=== PATIENT | male | born 1945 | race Caucasian/White ===

== ENCOUNTER 2022-12-17 13:01 | Outpatient (CLI) | payer MEDICARE, BC ==
[2022-12-17 17:58] LABS: BASOPHILS % (AUTO) 0.4 %; EOSINOPHILS # (AUTO) 0.3 10^3/uL (0.0-0.7); EOSINOPHILS % (AUTO) 4.3 %; HCT - HEMATOCRIT 45.1 % (42.0-52.0); HGB - HEMOGLOBIN 14.8 g/dL (14.0-18.0); LYMPHOCYTES # (AUTO) 1.7 10^3/uL (1.5-3.5); LYMPHOCYTES % (AUTO) 21.5 %; MEAN CORPUSCULAR HEMOGLOBIN 31.7 pg (27.0-31.0); MEAN CORPUSCULAR HGB CONC 32.8 g/dL (32.0-36.0); MEAN CORPUSCULAR VOLUME 96.6 fL (80.0-94.0); MEAN PLATELET VOLUME 9.6 fL (7.4-11.4); MONOCYTES # (AUTO) 0.9 10^3/uL (0.0-1.0); MONOCYTES % (AUTO) 11.3 %; NEUTROPHILS # (AUTO) 4.8 10^3/uL (1.5-6.6); NEUTROPHILS % (AUTO) 62.1 %; PLT - PLATELET COUNT 273 10^3/uL (130-450); RED BLOOD COUNT 4.67 10^6/uL (4.70-6.10); RED CELL DISTRIBUTION WIDTH 14.3 % (12.0-15.0); WHITE BLOOD COUNT 7.7 x10^3/uL (4.8-10.8)
[2022-12-17 18:48] LABS: ALBUMIN 4.1 g/dL (3.2-5.5); ALBUMIN/GLOBULIN RATIO 1.3 (1.0-2.2); ALKALINE PHOSPHATASE 110 IU/L (42-121); ALT ALANINE AMINOTRANSFERASE 26 IU/L (10-60); AST ASPARTATE AMINOTRANSFERASE 18 IU/L (10-42); BILIRUBIN,TOTAL 0.3 mg/dL (0.2-1.0); BUN - BLOOD UREA NITROGEN 26 mg/dL (6-20); CALCIUM 8.7 mg/dL (8.5-10.3); CARBON DIOXIDE - CO2 27 mmol/L (21-32); CHLORIDE 107 mmol/L (101-111); CHOL/HDL RATIO 4.8 (<5.0); CHOLESTEROL 174 mg/dL; GFR - MDRD 33 (>89); GLUCOSE 145 mg/dL (74-104); HDL CHOLESTEROL 36 mg/dL; LDL CHOLESTEROL,CALCULATED 84 mg/dL; LDL/HDL RATIO 2.3 (<3.6); POTASSIUM 4.4 mmol/L (3.5-4.5); SODIUM 139 mmol/L (135-145); TOTAL PROTEIN 7.2 g/dL (6.4-8.9); TRIGLYCERIDES 269 mg/dL (48-352); VLDL CHOLESTEROL 54 mg/dL
[2022-12-17 18:54] LABS: THYROID STIMULATING HORMONE 3.31 uIU/mL (0.34-5.60)
[2022-12-17 20:36] LABS: ESTIMATED AVERAGE GLUCOSE 154 mg/dL (70-100)
== END 2022-12-17 13:02 | disposition home or self-care (01) ==
LOC: LAB.N 13:01
PROVIDERS: ATTEND Nurse Practitioner Family
DX: E11.22 Type 2 diabetes mellitus with diabetic chronic kidney disease (principal); E78.5 Hyperlipidemia, unspecified; E03.9 Hypothyroidism, unspecified
CPT/HCPCS: 36415; 80053; 80061; 83036; 83721; 84443; 85025

== ENCOUNTER 2023-02-26 14:01 | Outpatient (CLI) | payer MEDICARE, BC | END 2023-02-26 14:02 | disposition critical access hospital (66) | LOC: EMS 14:01 | DX: R53.83 Other fatigue (principal); R53.1 Weakness; R11.2 Nausea with vomiting, unspecified; R19.7 Diarrhea, unspecified; R41.0 Disorientation, unspecified; R05.9 Cough, unspecified; R32 Unspecified urinary incontinence; Z91.148 Patient's other noncompliance with medication regimen for other reason | CPT/HCPCS: A0425; A0429 ==

== ENCOUNTER 2023-02-26 14:19 | Emergency (ER) | payer MEDICARE, BC ==
[2023-02-26 14:51] LABS: BASOPHILS % (AUTO) 0.4 %; EOSINOPHILS # (AUTO) 0.2 10^3/uL (0.0-0.7); EOSINOPHILS % (AUTO) 2.5 %; HCT - HEMATOCRIT 45.8 % (42.0-52.0); HGB - HEMOGLOBIN 15.4 g/dL (14.0-18.0); MEAN CORPUSCULAR HGB CONC 33.6 g/dL (32.0-36.0); MEAN CORPUSCULAR VOLUME 95.2 fL (80.0-94.0); MEAN PLATELET VOLUME 9.4 fL (7.4-11.4); MONOCYTES # (AUTO) 0.9 10^3/uL (0.0-1.0); MONOCYTES % (AUTO) 10.4 %; NEUTROPHILS # (AUTO) 5.4 10^3/uL (1.5-6.6); NEUTROPHILS % (AUTO) 63.5 %; PLT - PLATELET COUNT 264 10^3/uL (130-450); RED BLOOD COUNT 4.81 10^6/uL (4.70-6.10); RED CELL DISTRIBUTION WIDTH 12.3 % (12.0-15.0); WHITE BLOOD COUNT 8.5 x10^3/uL (4.8-10.8)
[2023-02-26 15:08] LABS: ALBUMIN 4.2 g/dL (3.2-5.5); MAGNESIUM 1.5 mg/dL (1.7-2.3)
[2023-02-26 15:09] LABS: ALBUMIN/GLOBULIN RATIO 1.3 (1.0-2.2); BILIRUBIN,TOTAL 0.6 mg/dL (0.2-1.0); CALCIUM 13.1 mg/dL (8.5-10.3); CREATININE 3.4 mg/dL (0.6-1.3); POTASSIUM 3.4 mmol/L (3.5-4.5); TOTAL PROTEIN 7.5 g/dL (6.4-8.9)
[2023-02-26] MEDS ORDERED: SODIUM CHLORIDE 0.9% 1,000 ML IV STA ×2 (15:10→15:32)
--- NOTE | 2023-02-26 15:16 | XRAY Report ---
PROCEDURE: Chest 1V INDICATIONS: AMS/CONFUSION/COUGH TECHNIQUE: One view of the chest was acquired. COMPARISON: None. FINDINGS: Surgical changes and devices: None. Lungs and pleura: No pleural effusions or pneumothorax. Lungs are clear. Mediastinum: Mediastinal contours appear normal. Heart size is normal. Bones and chest wall: No suspicious bony lesions. Overlying soft tissues appear unremarkable. IMPRESSION: No acute cardiopulmonary process. Reviewed by: Masood Garcia MD on 02/26/2023 2:14 PM [facility] Approved by: Masood Garcia MD on 02/26/2023 2:14 PM [facility] Station ID: [id number]
--- NOTE | 2023-02-26 15:24 | ED Physician Documentation ---
PD HPI ALTERED MENTAL STATUS - Stated complaint Stated Complaint: CONFUSION - Chief complaint Chief Complaint: General - History obtained from History obtained from: EMS - Additional information Additional information: 77-year-old male with history of insulin-dependent diabetes, hypertension, hypothyroidism presents by EMS from home for altered mental status. Per EMS the states that the patient has been feeling poorly for the last 3 days and has been in bed, eating and drinking very little. Today the patient was confused and could not even recognize his , so she called 911. On arrival patient appears to be sleeping comfortably, when aroused he does not know where he is or why he is in the emergency department. Denies pain. Review of Systems Unable to obtain: AMS PD PAST MEDICAL HISTORY - Past Medical History Past Medical History: Yes Cardiovascular: Hypertension, High cholesterol Endocrine/Autoimmune: Type 2 diabetes, HyPOthyroidism : Benign prostate hypertrophy - Past Surgical History Past Surgical History: No - Present Medications Home Medications: Ambulatory Orders Medication Instructions Recorded Confirmed Amitriptyline HCl 1 cap PO DAILY 02/26/23 02/26/23 Atorvastatin [Lipitor] 1 tab PO DAILY 02/26/23 02/26/23 Insulin Glargine,Hum.rec.anlog 1 unit SUBQ DAILY 02/26/23 02/26/23 [Basaglar Kwikpen U-100] Insulin Lispro [Humalog] 1 unit SUBQ DAILY 02/26/23 02/26/23 Levothyroxine Sodium [Synthroid] 1 tab PO DAILY 02/26/23 02/26/23 Tamsulosin [Flomax] 1 cap PO DAILY 02/26/23 02/26/23 - Allergies Allergies/Adverse Reactions: Allergies Allergy/AdvReac Type Severity Reaction Status Date / Time No Known Drug Allergies Allergy Verified 02/26/23 14:39 - Social History Does the pt smoke?: No Smoking Status: Never smoker Does the pt drink ETOH?: No - Immunizations Immunizations are current?: Yes - POLST Patient has POLST: No PD ED PE NORMAL - Vitals Vital signs reviewed: Yes - General General: No acute distress, Other (frail, ill appearing) - Cardiac Cardiac: RRR, Strong equal pulses - Respiratory Respiratory: No respiratory distress, Clear bilaterally - Abdomen Abdomen: Soft, Non tender, Non distended - Extremities Extremities: No deformity, No tenderness to palpate, Normal ROM s pain, No edema - Neuro Neuro: compressor operator 2-12 intact, Other (Oriented to self. Moves all extremities.) Results - Vitals Vitals: Vital Signs - 24 hr 02/27/23 02/27/23 02/27/23 03:15 04:00 04:03 Temperature 36.6 C Heart Rate 77 68 Respiratory 25 H 13 Rate Blood Pressure 148/94 H 170/73 H O2 Saturation 99 100 02/27/23 02/27/23 02/27/23 04:41 05:32 06:28 Temperature Heart Rate 62 63 68 Respiratory 14 12 14 Rate Blood Pressure 152/80 H 177/75 H 132/59 H O2 Saturation 94 96 95 Oxygen O2 Source Room air - Labs Labs: Microbiology 02/26/23 14:45 Blood Culture - Preliminary Blood - Right Arm NO GROWTH AFTER 1 DAY 02/26/23 14:38 Blood Culture - Preliminary Blood - Right Hand NO GROWTH AFTER 1 DAY Laboratory Tests 02/26/23 02/26/23 02/26/23 14:30 14:38 14:38 WBC 8.5 RBC 4.81 Hgb 15.4 Hct 45.8 MCV 95.2 H MCH 32.0 H MCHC 33.6 RDW 12.3 Plt Count 264 MPV 9.4 Neut # (Auto) 5.4 Lymph # (Auto) 2.0 Owsley # (Auto) 0.9 Eos # (Auto) 0.2 Baso # (Auto) 0.0 Absolute Nucleated RBC 0.00 Nucleated RBC % 0.0 Sodium 136 Potassium 3.4 L Chloride 99 L Carbon Dioxide 27 Anion Gap 10.0 BUN 45 H Creatinine 3.4 H Estimated GFR (MDRD) 18 L Glucose 196 H Lactic Acid Calcium 13.1 H* Ionized Calcium Magnesium 1.5 L Total Bilirubin 0.6 AST 15 ALT 19 Alkaline Phosphatase 113 Total Creatine Kinase 100 Troponin I High Sens Total Protein 7.5 Albumin 4.2 Globulin 3.3 Albumin/Globulin Ratio 1.3 Lipase 18 TSH Urine Color Urine Clarity Urine pH Ur Specific Stickney Urine Protein Urine Glucose (UA) Urine Ketones Urine Occult Blood Urine Nitrite Urine Bilirubin Urine Urobilinogen Ur Leukocyte Esterase Urine RBC Urine WBC Ur Squamous Epith Cells Urine Bacteria Ur Microscopic Review Urine Culture Comments Nasal Adenovirus (PCR) NOT DETECTED Nasal B. parapertussis DNA (PCR) NOT DETECTED Nasal Coronavir 229E PCR NOT DETECTED Nasal Coronavir HKU1 PCR NOT DETECTED Nasal Coronavir NL63 PCR NOT DETECTED Nasal Coronavir OC43 PCR NOT DETECTED Nasal Enterovir/Rhinovir PCR NOT DETECTED Nasal Influenza B PCR NOT DETECTED Nasal Influenza A PCR NOT DETECTED Nasal Parainfluen 1 PCR NOT DETECTED Nasal Parainfluen 2 PCR NOT DETECTED Nasal Parainfluen 3 PCR NOT DETECTED Nasal Parainfluen 4 PCR NOT DETECTED Nasal RSV (PCR) NOT DETECTED Nasal B.pertussis DNA PCR NOT DETECTED Nasal C.pneumoniae (PCR) NOT DETECTED Guillermo Human Metapneumo PCR NOT DETECTED Nasal M.pneumoniae (PCR) NOT DETECTED Nasal SARS-CoV-2 (PCR) NOT DETECTED 02/26/23 02/26/23 02/26/23 14:38 14:38 15:30 WBC RBC Hgb Hct MCV MCH MCHC RDW Plt Count MPV Neut # (Auto) Lymph # (Auto) Owsley # (Auto) Eos # (Auto) Baso # (Auto) Absolute Nucleated RBC Nucleated RBC % Sodium Potassium Chloride Carbon Dioxide Anion Gap BUN Creatinine Estimated GFR (MDRD) Glucose Lactic Acid 1.3 Calcium Ionized Calcium Magnesium Total Bilirubin AST ALT Alkaline Phosphatase Total Creatine Kinase Troponin I High Sens 182.7 H* Total Protein Albumin Globulin Albumin/Globulin Ratio Lipase TSH Urine Color YELLOW Urine Clarity CLEAR Urine pH 6.0 Ur Specific Stickney 1.020 Urine Protein TRACE Urine Glucose (UA) 100 H Urine Ketones TRACE Urine Occult Blood SMALL H Urine Nitrite NEGATIVE Urine Bilirubin NEGATIVE Urine Urobilinogen 0.2 (NORMAL) Ur Leukocyte Esterase NEGATIVE Urine RBC 0-5 Urine WBC 0-3 Ur Squamous Epith Cells NONE SEEN Urine Bacteria Rare Ur Microscopic Review INDICATED Urine Culture Comments NOT INDICATED Nasal Adenovirus (PCR) Nasal B. parapertussis DNA (PCR) Nasal Coronavir 229E PCR Nasal Coronavir HKU1 PCR Nasal Coronavir NL63 PCR Nasal Coronavir OC43 PCR Nasal Enterovir/Rhinovir PCR Nasal Influenza B PCR Nasal Influenza A PCR Nasal Parainfluen 1 PCR Nasal Parainfluen 2 PCR Nasal Parainfluen 3 PCR Nasal Parainfluen 4 PCR Nasal RSV (PCR) Nasal B.pertussis DNA PCR Nasal C.pneumoniae (PCR) Guillermo Human Metapneumo PCR Nasal M.pneumoniae (PCR) Nasal SARS-CoV-2 (PCR) 02/26/23 02/26/23 02/26/23 17:32 17:32 21:31 WBC RBC Hgb Hct MCV MCH MCHC RDW Plt Count MPV Neut # (Auto) Lymph # (Auto) Owsley # (Auto) Eos # (Auto) Baso # (Auto) Absolute Nucleated RBC Nucleated RBC % Sodium 137 Potassium 3.4 L Chloride 103 Carbon Dioxide 22 Anion Gap 12.0 BUN 43 H Creatinine 3.1 H Estimated GFR (MDRD) 20 L Glucose 239 H Lactic Acid Calcium 11.4 H Ionized Calcium NO Magnesium Total Bilirubin AST ALT Alkaline Phosphatase Total Creatine Kinase Troponin I High Sens 200.7 H* 186.7 H* Total Protein Albumin Globulin Albumin/Globulin Ratio Lipase TSH Urine Color Urine Clarity Urine pH Ur Specific Stickney Urine Protein Urine Glucose (UA) Urine Ketones Urine Occult Blood Urine Nitrite Urine Bilirubin Urine Urobilinogen Ur Leukocyte Esterase Urine RBC Urine WBC Ur Squamous Epith Cells Urine Bacteria Ur Microscopic Review Urine Culture Comments Nasal Adenovirus (PCR) Nasal B. parapertussis DNA (PCR) Nasal Coronavir 229E PCR Nasal Coronavir HKU1 PCR Nasal Coronavir NL63 PCR Nasal Coronavir OC43 PCR Nasal Enterovir/Rhinovir PCR Nasal Influenza B PCR Nasal Influenza A PCR Nasal Parainfluen 1 PCR Nasal Parainfluen 2 PCR Nasal Parainfluen 3 PCR Nasal Parainfluen 4 PCR Nasal RSV (PCR) Nasal B.pertussis DNA PCR Nasal C.pneumoniae (PCR) Guillermo Human Metapneumo PCR Nasal M.pneumoniae (PCR) Nasal SARS-CoV-2 (PCR) 02/27/23 06:12 WBC RBC Hgb Hct MCV MCH MCHC RDW Plt Count MPV Neut # (Auto) Lymph # (Auto) Owsley # (Auto) Eos # (Auto) Baso # (Auto) Absolute Nucleated RBC Nucleated RBC % Sodium 140 Potassium 3.2 L Chloride 102 Carbon Dioxide 25 Anion Gap 13.0 BUN 43 H Creatinine 3.0 H Estimated GFR (MDRD) 20 L Glucose 181 H Lactic Acid Calcium 11.3 H Ionized Calcium Magnesium Total Bilirubin AST ALT Alkaline Phosphatase Total Creatine Kinase Troponin I High Sens 176.2 H* Total Protein Albumin Globulin Albumin/Globulin Ratio Lipase TSH 5.40 Urine Color Urine Clarity Urine pH Ur Specific Stickney Urine Protein Urine Glucose (UA) Urine Ketones Urine Occult Blood Urine Nitrite Urine Bilirubin Urine Urobilinogen Ur Leukocyte Esterase Urine RBC Urine WBC Ur Squamous Epith Cells Urine Bacteria Ur Microscopic Review Urine Culture Comments Nasal Adenovirus (PCR) Nasal B. parapertussis DNA (PCR) Nasal Coronavir 229E PCR Nasal Coronavir HKU1 PCR Nasal Coronavir NL63 PCR Nasal Coronavir OC43 PCR Nasal Enterovir/Rhinovir PCR Nasal Influenza B PCR Nasal Influenza A PCR Nasal Parainfluen 1 PCR Nasal Parainfluen 2 PCR Nasal Parainfluen 3 PCR Nasal Parainfluen 4 PCR Nasal RSV (PCR) Nasal B.pertussis DNA PCR Nasal C.pneumoniae (PCR) Guillermo Human Metapneumo PCR Nasal M.pneumoniae (PCR) Nasal SARS-CoV-2 (PCR) PD Medical Decision Making - ED course Complexity details: reviewed old records, reviewed results, re-evaluated patient, considered differential, d/w patient, d/w family ED course: AMS x2 days following viral-sounding illness. Discussed with Susana ([phone]) who stated that patient has been in bed for 4 days and drinking very little. She states that he did fall 2 days ago in the bathroom and hit his head, however he was not evaluated medically at that time. He has a hx of stage II kidney disease that is being monitored. Labs significant for creatinine 3.4 (prev 2.0), Calcium 13, trop 180. EKG NSR without ischemia. Preliminary review of CT abdomen and pelvis and CT brain do not appear to show acute process, however pending formal radiology read. Mental status unchanged, patient remains confused and lethargic. is now arrived at bedside, she states that they have recently moved to the area from another region and have not established care in the area. Care of patient signed out to Dr. Mcclelland. - Critical Care Time(min): 64 Comments: multiple metabolic derangements requiring correction. Time Includes: Direct patient care, Review records, Reassess patient, Document care, Coordinate care, Medical consult, Family consult for tx dec Data interpretation: Labs, Pulse ox, CXR, Prior EKG, Cardiac output Departure - Departure Disposition: 02 Transfer Acute Care Hosp Clinical Impression: Metabolic encephalopathy, Hypercalcemia, MODESTA (acute kidney injury), NSTEMI (n on-ST elevated myocardial infarction) Condition: Serious Forms: PCP List Discharge Date/Time: 02/27/23 07:50
[2023-02-26 15:39] LABS: B. PARAPERTUSSIS- RESP PCR PAN NOT DETECTED; B. PERTUSSIS- RESP PCR PANEL NOT DETECTED; C. PNEUMONIAE- RESP PCR PANEL NOT DETECTED; CORONAVIRUS 229E-RESP PCR NOT DETECTED; CORONAVIRUS HKU1-RESP PCR NOT DETECTED; CORONAVIRUS NL63-RESP PCR NOT DETECTED; CORONAVIRUS OC43-RESP PCR NOT DETECTED; HUMAN METAPNEUMOVIRUS NOT DETECTED; INFLUENZA A- RESP PCR PANEL NOT DETECTED; INFLUENZA B - RESP PCR PANEL NOT DETECTED; M. PNEUMONIAE- RESP PCR PANEL NOT DETECTED; PARAINFLUENZA VIRUS 1 NOT DETECTED; PARAINFLUENZA VIRUS 2 NOT DETECTED; PARAINFLUENZA VIRUS 3 NOT DETECTED; PARAINFLUENZA VIRUS 4 NOT DETECTED; RHINOVIRUS/ENTEROVIRUS NOT DETECTED; RSV- RESP PCR PANEL NOT DETECTED; SARS-CoV-2 -RESP PCR PANEL NOT DETECTED
[2023-02-26] MEDS ORDERED: MORPHINE 2 MG/ML CARPUJECT IVP STA (15:43)
[2023-02-26] MEDS ORDERED: hydrALAZINE INJ 20 MG/ML VIAL IVP STA (15:43)
[2023-02-26 16:06] LABS: BILIRUBIN,URINE NEGATIVE (NEGATIVE); GLUCOSE, URINE (UA) 100 mg/dL (NEGATIVE); KETONES,URINE (UA) TRACE mg/dL (NEGATIVE); LEUKOCYTE ESTERASE, URINE NEGATIVE (NEGATIVE); NITRITE,URINE NEGATIVE (NEGATIVE); OCCULT BLOOD,URINE SMALL (NEGATIVE); PROTEIN,URINE TRACE mg/dL (NEGATIVE); UROBILINOGEN,URINE 0.2 (NORMAL) E.U./dL (NORMAL)
[2023-02-26 16:09] LABS: CLARITY,URINE CLEAR (CLEAR)
[2023-02-26 16:18] LABS: BACTERIA,URINE Rare /HPF (None Seen); RBC,URINE 0-5 /HPF (0-5); SQUAMOUS EPITHELIAL CELL,UR NONE SEEN (<= Few); WBC,URINE 0-3 /HPF (0-3)
[2023-02-26] MEDS ORDERED: LABETALOL 20 MG/4 ML SYRINGE IVP STA (16:57)
--- NOTE | 2023-02-26 17:42 | CT Report ---
PROCEDURE: Head WO INDICATIONS: AMS/CONFUSION TECHNIQUE: Noncontrast 4.5 mm thick angled axial sections acquired from the foramen magnum to the vertex. For r adiation dose reduction, the following was used: automated exposure control, adjustment of mA and/or kV according to patient size. COMPARISON: None. FINDINGS: Image quality: Excellent. CSF spaces: Basal cisterns are patent. No extra-axial fluid collections. Ventricles are normal in size and shape. Brain: Diffuse parenchymal volume loss with expansion of the CSF containing spaces. No midline shift . No intracranial masses or hemorrhage. Lozano-white matter interface is normal. Skull and face: Calvarium and visualized facial bones are intact, without suspicious lesions. Sinuses: Visualized sinuses and mastoids are clear. IMPRESSION: No intracranial hemorrhage or acute finding. Reviewed by: Masood Garcia MD on 02/26/2023 4:41 PM [facility] Approved by: Masood Garcia MD on 02/26/2023 4:41 PM [facility] Station ID: [id number]
[2023-02-26] MEDS ORDERED: MAGNESIUM SULFATE 2 GRAM 2 GM/50 ML BAG IV ONE (17:45)
--- NOTE | 2023-02-26 17:46 | CT Report ---
PROCEDURE: Abdomen/Pelvis WO INDICATIONS: MIDEPIGASTRIC ABD PAIN TECHNIQUE: A CT scan of the abdomen and pelvis was performed without the use of intravenous contrast. Images we re recorded and evaluated at appropriate window settings. Reformats: coronal and sagittal. For radiat ion dose reduction, the following was used: automated exposure control, adjustment of mA and/or kV ac cording to patient size. COMPARISON: None. FINDINGS: Image quality: Excellent. Lung bases and heart: Hiatal hernia. Mild gravity dependent atelectasis. Liver: No contour-deforming mass. Gallbladder and biliary tree: No radiopaque stones or wall thickening. No biliary dilation. Spleen: No splenomegaly. Pancreas: No pancreatic ductal dilation. Adrenals: No adrenal nodule. Kidneys and ureters: No hydronephrosis. No renal cystic lesion which requires follow up. No solid mas s. Multiple bilateral nonobstructive renal stones. Surrounding senescent fatty filtration. Partially exophytic right renal cyst. Bowel and peritoneum: No bowel distension. No pathologic free fluid. Normal appendix. Lymph nodes: No central or retroperitoneal adenopathy. Vessels: No infrarenal aortic aneurysm. PELVIS Reproductive organs: Unremarkable. Bladder: No wall thickness, accounting for underdistention. Pelvic lymph nodes: No pelvic adenopathy by size criteria. Bones: No aggressive osseous abnormality. Other: No significant ventral or inguinal hernia. IMPRESSION: Numerous bilateral obstructive renal stones without hydronephrosis. Small hiatal hernia. Reviewed by: Masood Garcia MD on 02/26/2023 4:45 PM [facility] Approved by: Masood Garcia MD on 02/26/2023 4:45 PM [facility] Station ID: [id number]
[2023-02-26 18:07] LABS: BUN - BLOOD UREA NITROGEN 43 mg/dL (6-20); CALCIUM 11.4 mg/dL (8.5-10.3); CARBON DIOXIDE - CO2 22 mmol/L (21-32); CHLORIDE 103 mmol/L (101-111); CREATININE 3.1 mg/dL (0.6-1.3); GFR - MDRD 20 (>89); GLUCOSE 239 mg/dL (74-104); IONIZED CALCIUM IF INDICATED NO; POTASSIUM 3.4 mmol/L (3.5-4.5); SODIUM 137 mmol/L (135-145)
[2023-02-26] MEDS ORDERED: ENOXAPARIN 80 MG/0.8 ML SYRINGE SUBQ STA (18:14)
[2023-02-26] MEDS ORDERED: ASPIRIN CHEW 81 MG TABLET PO STA (18:15)
[2023-02-26] MEDS ORDERED: ASPIRIN CHEW 81 MG TABLET ONE (18:48)
--- NOTE | 2023-02-26 18:50 | ED Physician Documentation ---
ED Addendum - Addendum Addendum: 02/26/23 18:50 Patient was signed out to me by her all of her awaiting repeat laboratory testing as well as final results of CT scans. CT scan does not show any acute abnormality of the head or abdomen pelvis that would explain his symptoms. His second troponin came back higher than the initial. states he had been eating a lot of Tums lately. Does not recall any specific chest pain but he has heartburn frequently. states that he has not had any cardiac history in the past. They recently moved here from [facility], his care used to be at [facility]. 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 Patient was given Lovenox for an NSTEMI. We will attempt to find a hospital for transfer. 02/26/23 21:32 No beds available locally yet, we are still looking for placement. Patient will be signed out to Dr. De La Rosa overnight continuing to look for a facility to take the patient. Departure - Departure Clinical Impression: Metabolic encephalopathy, Hypercalcemia, MODESTA (acute kidney injury), NSTEMI (non-ST elevated myocardial infarction) Condition: Serious Forms: PCP List
[2023-02-26] MEDS ORDERED: LOSARTAN 50 MG TABLET PO STA (19:08)
[2023-02-27] MEDS ORDERED: ACETAMINOPHEN 325 MG TABLET PO STA (03:25)
[2023-02-27 06:31] VITALS: BP 132/59; O2SAT 95
--- NOTE | 2023-02-27 06:55 | ED Physician Documentation ---
ED Addendum - Addendum Addendum: 02/27/23 06:51 I received signout/turnover of care from Dr. Ibrahim at the end of his shift who, in turn, received signout from Dr. Sims. Please see Dr. Sims's note for complete H&P as well as Dr. Mcclelland's addendum. In brief, patient's called 911 due to patient exhibiting altered mental status for the past few days as well as decreased activity and decreased p.o. intake. Patient has had significant confusion throughout ED stay and thus cannot offer useful contributing information to HPI/ROS. Reportedly, the patient had been taking a lot of oral antacids over the past few days, as well. This is led to the concern that the patient might be having abdominal and/or chest pain. Concerning findings on his workup thus far has included hypercalcemia (13.1, improving to 11.4 with IV fluids), elevated BUN and creatinine with mild improvement with IV fluids, and elevated high-sensitivity troponin (initially 183, increased to 201 on 3-hour repeat, subsequent recheck 187). Patient had significantly elevated blood pressures early in ED stay (systolic blood pressures as high as 220s), which eventually responded to several different medications including losartan, labetalol IV, and IV hydralazine. Given the lack of the clear baseline regarding his kidney function tests and mental status, and considering the elevated troponins patient will require further inpatient testing at a facility with higher level of care than is available at [facility]. I spoke with cardiology on-call for [facility] (Dr. Harvey) who agrees patient would be appropriate for transfer to [facility] under hospitalist service. I then spoke with Dr. Rutherford (hospitalist at [facility]) who accepts transfer of patient. However, I was then told by the transfer center coordinator that due to patient's AMS and his attempting to get out of bed despite being asked to not do so, he will require a sitter and this will require staffing beyond what is currently available (at the time of our conversation). He is thus on waiting list for transfer to [facility]. Towards the end of my shift, at approximately 5:30 AM, I was put in touch with cardiology on-call for [facility] (Dr. Andrade). Agrees patient would be appropriate for transfer to [facility] hospitalist service. I then spoke with Dr. Drake, hospitalist at [facility], who accepts patient for transfer to [facility]. In the course of our discussion, I note that the CT A/P performed yesterday in ED was read by radiologist as "numerous bilateral obstructive renal stones without hydronephrosis" although within same dictation it indicates "multiple bilateral nonobstructive renal stones" I spoke with radiologist certifed refrigeration operator and he entered an addendum to reflect final impression of "Numerous bilateral NONOBSTRUCTIVE renal stones without hydronephrosis". Note that patient was given 80mg SQ lovenox at 18:15; based on his GFR, dosing would be QD and thus he did not receive subsequent doses during [facility] ED stay
[2023-02-27 06:56] LABS: THYROID STIMULATING HORMONE 5.4 uIU/mL (0.34-5.60)
[2023-02-27 07:55] LABS: TROPONIN I HIGH SENSITIVITY 176.2 ng/L (2.3-19.7)
[2023-02-27 08:05] LABS: CALCIUM 11.3 mg/dL (8.5-10.3); POTASSIUM 3.2 mmol/L (3.5-4.5)
== END 2023-02-27 07:50 | disposition short-term general hospital (02) ==
LOC: EDUNIT# → ED 14:19
DX: G93.41 Metabolic encephalopathy (principal); E83.52 Hypercalcemia; N17.9 Acute kidney failure, unspecified; I21.4 Non-ST elevation (NSTEMI) myocardial infarction; I10 Essential (primary) hypertension; Z75.1 Person awaiting admission to adequate facility elsewhere
CPT/HCPCS: 36415; 70450; 71045; 74176; 80048; 80053; 81001; 82550; 83605; 83690; 83735; 84443; 84484; 85025; 87040; 87633; 93005; 96361; 96365; 96372; 96375; 99291; A9270; J1650; 81003; 87086

== ENCOUNTER 2023-06-02 08:00 | Outpatient (CLI) | payer MEDICARE, BC ==
[2023-06-02 19:54] LABS: BILIRUBIN,URINE NEGATIVE (NEGATIVE); GLUCOSE, URINE (UA) >=1000 mg/dL (NEGATIVE); KETONES,URINE (UA) NEGATIVE (NEGATIVE); LEUKOCYTE ESTERASE, URINE SMALL (NEGATIVE); NITRITE,URINE POSITIVE (NEGATIVE); OCCULT BLOOD,URINE TRACE-INTA (NEGATIVE); PROTEIN,URINE NEGATIVE (NEGATIVE); UROBILINOGEN,URINE 0.2 (NORMAL) E.U./dL (NORMAL)
[2023-06-02 19:56] LABS: CLARITY,URINE HAZY (CLEAR)
[2023-06-02 20:03] LABS: BACTERIA,URINE Few /HPF (None Seen); RBC,URINE 0-5 /HPF (0-5); SQUAMOUS EPITHELIAL CELL,UR RARE Squamous (<= Few); WBC,URINE >25 /HPF (0-3)
== END 2023-06-02 23:59 | disposition home or self-care (01) ==
LOC: LAB.WCP 08:00
PROVIDERS: ATTEND Nurse Practitioner Family
DX: N40.1 Benign prostatic hyperplasia with lower urinary tract symptoms (principal); R30.0 Dysuria; R32 Unspecified urinary incontinence
CPT/HCPCS: 81001; 87077; 87086

== ENCOUNTER 2023-06-24 12:45 | Outpatient (CLI) | payer MEDICARE, BC ==
--- NOTE | 2023-06-24 15:20 | XRAY Report ---
PROCEDURE: Chest 2V INDICATIONS: LOWER EXTREMITY EDEMA,BILATERAL TECHNIQUE: 2 views of the chest were acquired. COMPARISON: Chest radiographs 02/26/2023 FINDINGS: Surgical changes and devices: None. Lungs and pleura: No pleural effusions or pneumothorax. Lungs are clear. Mediastinum: Mediastinal contours appear normal. Heart size is normal. Bones and chest wall: No suspicious bony lesions. Overlying soft tissues appear unremarkable. IMPRESSION: No acute cardiopulmonary process. Reviewed by: Don Lynn MD on 06/24/2023 3:18 PM PDT Approved by: Don Lynn MD on 06/24/2023 3:18 PM PDT Station ID: [id number]
== END 2023-06-24 13:00 | disposition home or self-care (01) ==
LOC: DI.N 12:45
PROVIDERS: ATTEND Physician Assistant
DX: R60.0 Localized edema (principal); R60.9 Edema, unspecified

== ENCOUNTER 2023-06-29 08:00 | Outpatient (CLI) | payer MEDICARE, BC ==
[2023-06-29 13:07] LABS: BILIRUBIN,URINE NEGATIVE (NEGATIVE); GLUCOSE, URINE (UA) NEGATIVE (NEGATIVE); KETONES,URINE (UA) TRACE mg/dL (NEGATIVE); LEUKOCYTE ESTERASE, URINE SMALL (NEGATIVE); NITRITE,URINE POSITIVE (NEGATIVE); OCCULT BLOOD,URINE NEGATIVE (NEGATIVE); PROTEIN,URINE TRACE mg/dL (NEGATIVE); UROBILINOGEN,URINE 0.2 (NORMAL) E.U./dL (NORMAL)
[2023-06-29 13:11] LABS: CLARITY,URINE CLEAR (CLEAR)
[2023-06-29 13:42] LABS: WBC,URINE >25 /HPF (0-3)
[2023-06-29 13:43] LABS: BACTERIA,URINE Rare /HPF (None Seen); RBC,URINE 0-5 /HPF (0-5); SQUAMOUS EPITHELIAL CELL,UR NONE SEEN (<= Few)
== END 2023-06-29 23:59 | disposition home or self-care (01) ==
LOC: LAB.N 08:00
PROVIDERS: ATTEND Nurse Practitioner Family
DX: R30.0 Dysuria (principal)
CPT/HCPCS: 81001; 87086

== ENCOUNTER 2023-07-09 13:12 | Outpatient (CLI) | payer MEDICARE, BC ==
--- NOTE | 2023-07-11 10:02 | Ultrasound Report ---
PROCEDURE: Duplex Ext Veins Bilateral INDICATIONS: Kaleb iKng PA-C TECHNIQUE: Real-time imaging, as well as color and pulse Doppler interrogation, were performed of the deep veins of both legs from the inguinal ligament to the popliteal fossa. Attempted visualization of the calf veins was performed. COMPARISON: None FINDINGS: The deep veins are normally compressible, and free of intraluminal thrombus. Color and pu lse Doppler demonstrate normal phasic intravascular flow. There is normal augmentation response to d istal compression maneuver. IMPRESSION: No deep venous thrombosis of the visualized lower extremities. Reviewed by: Holly Grace MD on 07/11/2023 10:01 AM PDT Approved by: Holly Grace MD on 07/11/2023 10:01 AM PDT Station ID: [id number]
== END 2023-07-09 13:13 | disposition home or self-care (01) ==
LOC: DI 13:12
PROVIDERS: ATTEND Physician Assistant
DX: R60.0 Localized edema (principal)
CPT/HCPCS: 93970

== ENCOUNTER 2023-08-17 08:00 | Outpatient (CLI) | payer MEDICARE, BC | END 2023-08-17 23:59 | disposition home or self-care (01) | LOC: LAB 08:00 | PROVIDERS: ATTEND Urology | DX: N40.1 Benign prostatic hyperplasia with lower urinary tract symptoms (principal) | CPT/HCPCS: 87086 ==

== ENCOUNTER 2023-08-17 14:10 | Outpatient (CLI) | payer MEDICARE, BC ==
--- NOTE | 2023-08-17 23:15 | XRAY Report ---
PROCEDURE: Scapula 2V BL INDICATIONS: UPPER BACK PAIN TECHNIQUE: 4 views of the scapula were acquired. COMPARISON: Chest radiograph dated 06/24/2023 FINDINGS: Bones: No fractures or dislocations. No suspicious bony lesions. Visualized ribs appear intact. Soft tissues: Overlying soft tissues appear normal. IMPRESSION: No gross scapular fracture. No suspicious bony lesions. No gross soft tissue abnormalities. Reviewed by: Jerad Magana MD on 08/17/2023 11:14 PM PDT Approved by: Jerad Magana MD on 08/17/2023 11:14 PM PDT Station ID: [id number]
--- NOTE | 2023-08-17 23:18 | XRAY Report ---
PROCEDURE: Thoracic Spine 2V INDICATIONS: UPPER BACK PAIN TECHNIQUE: 3 views of the thoracic spine were acquired. COMPARISON: None. FINDINGS: Bones: No fractures or dislocations. No suspicious bony lesions. (12/27/2021/.. 12 pairs of ribs are noted, and appear intact where visualized. Soft tissues: No paravertebral stripe thickening. IMPRESSION: No acute bony abnormality. Mild degenerative disc disease in mid to lower thoracic spine. Reviewed by: Jerad Magana MD on 08/17/2023 11:16 PM PDT Approved by: Jerad Magana MD on 08/17/2023 11:16 PM PDT Station ID: [id number]
== END 2023-08-17 14:11 | disposition home or self-care (01) ==
LOC: DI.N 14:10
PROVIDERS: ATTEND Nurse Practitioner Family
DX: M51.34 Other intervertebral disc degeneration, thoracic region (principal); N40.1 Benign prostatic hyperplasia with lower urinary tract symptoms
CPT/HCPCS: 87086

== ENCOUNTER 2023-09-27 13:34 | Outpatient (CLI) | payer MEDICARE, BC ==
--- NOTE | 2023-09-27 14:38 | Sleep Patient Instructions ---
Sleep Center Visit Summary - Patient Visit Information Reason for Visit: Initial consult for evaluation of sleep disordered breathing and other sleep issues. - Patient Instructions Instructions Attached: Sleep Study Additional Instructions: You will be completing a sleep study, either an in-lab polysomnography (PSG) or home sleep study (HST). You will follow-up in the sleep care office after the sleep study is completed to hear the results and talk about therapy, if needed. You will be called by our office staff to schedule this appointment, but you may contact us with any questions. - Clinic Information Contact: [facility] [address] [place] [address] [email or web address] T: [phone]
[2023-09-27 14:43] VITALS: BP 132/63; O2SAT 98
--- NOTE | 2023-09-27 14:43 | SLEEP CARE CONSULTATION ---
Information from patient questionnaire entered by Noa Cohen. I have reviewed and concur with the information entered by Noa Cohen. This document represents the service I personally performed and the decisions made by me, Danisha Peng ARNP. History of Present Illness Service Date and Time: 09/27/2023 1334 Reason for Visit: New patient Accompanied by: Spouse Chief Complaint: reports: Insomnia, Unrefreshed sleep, Snoring, Fatigue, Frequent awakenings at night Date of Onset: ABOUT A YR Usual bedtime: 4667-2172 Time it takes to fall asleep: A FEW MINS Snores at night: Yes Observed to quit breathing while asleep: No Sleeps alone due to snoring: Yes Number of times waking at night: 3-5 TIMES OVER ACTIVE BLADDER Reasons for waking at night: reports: Bathroom. denies: Choking, Snoring, Gasping for air Toss, Turn, or Twitch while sleeping: Yes Recalls having dreams: Yes Usually gets out of bed at: 10:00 AM Feels refreshed in the morning: No Morning headache: No Sleepy or fatigued during the day: Yes Ever fallen asleep while driving: No Takes day naps: No Dreams during day naps: No Prior sleep studies: Yes Year and Where: [facility] 10 or 15 years ago--was negative Additional HPI information: I had the pleasure of seeing CHAN RICCI today regarding the possibility of him having a sleep disorder. His current complaints are unrefreshed sleep, snoring, fatigue and frequent night awakenings. His states his snoring has finally moved to another room to get sleep. He says he has been on Amitriptyline 100 mg for years for his migraines but when he went to hospital for a possible TIA and they took his dose down to 25 mg. He had a hard time until he started another medication that is helping. He no longer takes the Amitriptyline He has had some overactive bladder that is improved with medications. The patient tells me that he normally goes to bed around 1:30-2:30 am, and it takes him approximately few minutes to fall asleep. He has been told that he snores loudly and irregularly at night. He has not been observed to stop breathing in his sleep. His bed partner has to sleep in another room due to the loudness of his snoring. He can recall waking up on the average of 3-5 times during the night. Most of the time he wakes up because of overactive bladder, bathroom needs. He has not awakened for his own snoring, choking, and having to gasp for air. There is a lot of tossing and turning in his sleep. Generally he can recall having dreams. He usually wakes up at 10 am and does not feel refreshed. He usually does not have a morning headache. During the day he complains of feeling sleepy and fatigued. He has never fallen asleep while driving nor has any accident due to sleepiness. He usually does not take naps during the day. There is somniloquy (sleep talking) but no somnambulism (sleep walking). He reports having impaired concentration during the day. - Parasomnia Symptoms Ever been unable to move upon waking from sleep: No Walks in sleep: No Talks in sleep: Yes Ever acted out dreams in sleep: Yes Ever felt weak in the knees when startled or emotional: Yes Bothered by creepy, crawly, restless sensations in legs: No Problems with memory or concentration: Yes Subjective Initial [place] Sleepiness Scale score: 7 (09/27/23) Past Medical History Past Medical History: reports: Diabetes, Hypothyroidism, Anxiety, Impotence, Depression, Mood disorder, Other (CHRONIC KIDENY DISEASE, GLAUCOMA, OVER ACTIVE BLADDER CHILBAINS, CHRONIC DRY EYE) Social History The patient's occupation is a RETIRED. Patient is and lives in . Have you smoked in the past 12 months: No Alcohol use: No Caffeine use: No Caffeine amount and frequency: drinks decaff, 24 ounces daily Family History Family history of sleep disordered breathing: Yes Family Hx Sleep Apnea: Father: Snoring Allergies and Home Medications Known drug allergies: No Drug allergies reviewed: Yes Home medication list reviewed: Yes (as listed) Allergy and home medication list: Allergies No Known Drug Allergies Allergy (Verified 09/27/23 13:37) Home Medications Medication Instructions Recorded Confirmed Last Taken Type Atorvastatin [Lipitor] 1 tab PO DAILY 02/26/23 09/27/23 Unknown History Insulin Glargine,Hum.rec.anlog 1 unit SUBQ DAILY 02/26/23 09/27/23 Unknown History [Basaglar Kwikpen U-100] Insulin Lispro [Humalog] 1 unit SUBQ DAILY 02/26/23 09/27/23 Unknown History Levothyroxine Sodium [Synthroid] 1 tab PO DAILY 02/26/23 09/27/23 Unknown History Tamsulosin [Flomax] 1 cap PO DAILY 02/26/23 09/27/23 Unknown History Aspirin [Vazalore] See Rx Instructions .[facility] 09/27/23 09/27/23 Unknown History Dextrose [Glucose] See Rx Instructions .[facility] 09/27/23 09/27/23 Unknown History Dorzolamide HCl/Pf [Dorzolamide 2% See Rx Instructions .[facility] 09/27/23 09/27/23 Unknown History Eye Drop] Latanoprost 0.005% Ophth Drops See Rx Instructions .[facility] 09/27/23 09/27/23 Unknown History [Xalatan Ophth Drops] Mirabegron [Mirabegron ER] See Rx Instructions .[facility] 09/27/23 09/27/23 Unknown History Multivitamin See Rx Instructions .[facility] 09/27/23 09/27/23 Unknown History QUEtiapine [SEROquel] See Rx Instructions .[facility] 09/27/23 09/27/23 Unknown History amLODIPine [Norvasc] See Rx Instructions .[facility] 09/27/23 09/27/23 Unknown History buPROPion [Wellbutrin Sr] See Rx Instructions .[facility] 09/27/23 09/27/23 Unknown History flaxseed oiL [Flaxseed Oil] See Rx Instructions .[facility] 09/27/23 09/27/23 Unknown History Review of Systems Weight loss over past 5 years: 50 Cardiovascular: denies: high blood pressure Gastrointestinal: denies: heartburn Urinary: reports: incontinence, impotence Psychiatric: reports: anxiety, depression, mood disorder Ear/Nose/Throat: reports: dry mouth/throat, tonsillectomy Endocrine: reports: thyroid disease, sluggishness, too hot or cold, increased urination Musculoskeletal: reports: back pain Physical Exam Vital signs obtained and entered by: NOA Jeronimo MA Blood Pressure: 132/63 (RIGHT ARM) Cuff size: regular Heart Rate: 64 O2 Saturation: 98 Height: 6 ft Weight: 172 lb 9.6 oz Body Mass Index: 23.3 BMI Classification: Normal Neck circumference: 17 Mouth and throat: narrow oropharynx Hard palate: normal Uvula visualization: 25% Mallampati Class III Tongue: enlarged in size with teeth pandya on lateral edges Tonsils: absent bilaterally Neck: normal w/o lymphadenopathy or thyromegaly Heart: irregular rhythm Lungs: clear bilaterally Impression and Plan 1. Suspected Obstructive Sleep Apnea-Hypopnea Syndrome, as suggested by a histo ry of loud and irregular snoring, frequent awakening during the night, unrefreshed sleep and cognitive impairment. Narrow oropharynx and obesity are common predisposing factors for obstructive sleep apnea-hypopnea syndrome. I recommend proceeding to polysomnography to confirm the diagnosis and to assess severity. If the patient has significant sleep disordered breathing, a manual CPAP titration study will also be performed to find the optimal treatment pressure. I informed the patient of what the sleep studies involve and after some discussion, obtained agreement to proceed. The pathophysiology of obstructive sleep apnea-hypopnea syndrome was discussed with the patient and health risks of cardiovascular and cerebrovascular disease if not treated. Risks of drowsy driving discussed in detail and patient advised to avoid long distance driving and to chain puller at the first sign of drowsiness. Patient agreed to plan. * Schedule polysomnography * Avoid long distance driving or driving when feeling sleepy. * Avoid alcohol, sedative and muscle relaxant around bedtime. * Review instructions provided by trained office staff on how to prepare for the sleep study. * Return for follow-up after sleep study completed. Counseling Topics: Weight control Visit Type: In Office Time Spent with Patient (minutes): 35 Provider Statement: I spent 100% of the Face to Face Visit with the patient with greater than 50% spent counseling the patient and coordination of care.
== END 2023-09-27 13:35 | disposition home or self-care (01) ==
LOC: SC 13:34
PROVIDERS: ATTEND Nurse Practitioner Family
DX: G47.8 Other sleep disorders (principal); R41.89 Other symptoms and signs involving cognitive functions and awareness; R06.83 Snoring
CPT/HCPCS: 99203; G0463; 99212

== ENCOUNTER 2023-10-03 14:44 | Outpatient (CLI) | payer MEDICARE, BC ==
[2023-10-03 18:20] LABS: CALCIUM 9.4 mg/dL (8.5-10.3); CREATININE 1.9 mg/dL (0.6-1.3); POTASSIUM 4.3 mmol/L (3.5-4.5)
[2023-10-03 22:46] LABS: ESTIMATED AVERAGE GLUCOSE 166 mg/dL (70-100); HEMOGLOBIN A1c% 7.4 % (4.27-6.07)
== END 2023-10-03 14:45 | disposition home or self-care (01) ==
LOC: LAB.N 14:44
PROVIDERS: ATTEND Nurse Practitioner Family
DX: E11.65 Type 2 diabetes mellitus with hyperglycemia (principal); I12.9 Hypertensive chronic kidney disease with stage 1 through stage 4 chronic kidney disease, or unspecified chronic kidney disease; Z79.899 Other long term (current) drug therapy
CPT/HCPCS: 36415; 80048; 83036

== ENCOUNTER 2023-10-30 19:35 | Outpatient (CLI) | payer MEDICARE, BC | END 2023-10-30 19:36 | disposition home or self-care (01) | LOC: SC 19:35 | PROVIDERS: ATTEND Nurse Practitioner Family | DX: G47.8 Other sleep disorders (principal); R53.83 Other fatigue; R06.83 Snoring; F32.A Depression, unspecified; E11.9 Type 2 diabetes mellitus without complications | CPT/HCPCS: 95810 ==

== ENCOUNTER 2023-11-10 09:43 | Outpatient (CLI) | payer MEDICARE, BC ==
--- NOTE | 2023-11-10 10:17 | Sleep Patient Instructions ---
Sleep Center Visit Summary - Patient Visit Information Reason for Visit: Sleep study follow-up - Patient Instructions Instructions Attached: Snoring Tips Prevent Additional Instructions: Your sleep study today was negative for significant sleep disordered breathing. You were found to have episodes of snoring. There are different ways to control snoring including weight loss, oral devices made by a dentist or surgical options through ENT specialist. You should not use oral devices that do not fit properly because they can affect your bite. You should also check insurance coverage of oral devices for snoring because they may not be cover well. You may obtain a referral to an ENT specialist through your primary provider. Follow-up as needed. - Clinic Information Contact: [facility] [address] [place] [address] [email or web address] T: [phone]
--- NOTE | 2023-11-10 10:20 | SLEEP CARE CONSULTATION ---
Information from patient questionnaire entered by Orville Claros. I have reviewed and concur with the information entered by Orville Claros. This document represents the service I personally performed and the decisions made by , Danisha Peng ARNP. History of Present Illness Service Date and Time: 11/10/2023 0943 Accompanied by: Spouse (Rachelle) Initial [place] Sleepiness Scale score: 7 (09/27/23) Current [place] Sleepiness Scale score: 4 (11/10/23) Additional HPI information: CHAN RICCI returns for follow up and results of the recently performed polysomnography on 10/30/23. The patient was informed of the following findings: No significant sleep disordered breathing with an average AHI of 0.5 and clare oxygen saturation of 92%. He did not sleep supine. I explained the pathophysiology behind obstructive sleep apnea. Patient does not have sleep apnea and was advised how weight gain could increase the risk of developing sleep apnea in the future. Patient has mild snoring. Snoring can also be treated with an oral appliance from a dentist. Advised to check insurance coverage. In addition, an ENT evaluation can be do to see if other treatment is indicated. Patient does not drink alcohol. Patient was cautioned about risks of drowsy driving until sleepiness symptoms resolve. Patient denies drowsy driving. Sleep Study - Results Prior sleep studies: Yes Year and Where: [facility] 10 or 15 years ago--was negative Polysomnography/Home Sleep Study results: IMPRESSION: The quality of the study is good. The patient had reduced sleep efficiency due to two prolonged awakenings during the night. The sleep architecture was relatively normal considering the first-night effect. Respiratory monitoring showed no significant sleep disordered breathing (AHI = 0.5) or hypoxia (clare oxygen saturation of 92%). The patient did not sleep supine during this study. Snore was infrequent and light in intensity. There was no significant periodic leg movement of sleep. Cardiac rhythm was normal sinus rhythm without significant arrhythmia. No abnormal behavior (parasomnia) observed during the night. Allergies and Home Medications Known drug allergies: No Drug allergies reviewed: Yes Home medication list reviewed: Yes (bupropion, Mirabegron) Allergy and home medication list: Allergies No Known Drug Allergies Allergy Review of Systems Review of systems same as previous: Yes (no changes) Physical Exam Vital signs obtained and entered by: Danisha E, [employer] SW[employer] DEVELOPER Blood Pressure: 121/65 Cuff size: regular (left arm) Heart Rate: 68 O2 Saturation: 98 Height: 6 ft Weight: 172 lb 3.2 oz Body Mass Index: 23.3 BMI Classification: Normal Impression and Plan 1. Snoring but no significant sleep disordered breathing. Patient advised that often weight loss will reduce snoring as well as apnea risk. An oral appliance can also be used for snoring. This would require a dental consultation. Patient cautioned not to use other online appliances as can cause bite issues. Patient is advised to check if insurance will cover. An ENT consult can also be helpful to determine if any other treatment is an option. * Avoid alcohol consumption near bedtime * The patient is cautioned about driving until sleepiness is completely resolved. * Return as needed for follow up. Counseling Topics: Weight control Follow up with Sleep Care in: as needed Visit Type: In Office Time Spent with Patient (minutes): 20 Provider Statement: I spent 100% of the Face to Face Visit with the patient with greater than 50% spent counseling the patient and coordination of care.
[2023-11-10 10:25] VITALS: BP 121/65; O2SAT 98
== END 2023-11-10 09:44 | disposition home or self-care (01) ==
LOC: SC 09:43
PROVIDERS: ATTEND Nurse Practitioner Family
DX: R06.83 Snoring (principal)
CPT/HCPCS: 99213; G0463; 99212